=== PATIENT | female | born 1965 | race Caucasian/White ===

== ENCOUNTER 2018-03-07 18:26 | Emergency (ER) | payer MEDICAID ==
[2015-06-29 13:39] VITALS: BMI 17.3
[~2018-03-07 18:26] MED LIST: KLONOPIN1 MG PO; NORVASC2.5 MG PO; NUCYNTA50 MG PO; PROTONIX40 MG PO; ULTRAM50 MG PO; VITAMIN B-1100 M1 PO
== END 2018-03-07 19:22 | disposition home or self-care (01) ==
LOC: D.ER 18:26
DX: S61.512A Laceration without foreign body of left wrist, initial encounter (principal); W25.XXXA Contact with sharp glass, initial encounter; Y93.89 Activity, other specified; Y92.019 Unspecified place in single-family (private) house as the place of occurrence of the external cause; F17.200 Nicotine dependence, unspecified, uncomplicated

== ENCOUNTER 2020-01-10 15:02 | Emergency (ER) | payer MEDICAID ==
[~2020-01-10] VITALS: Ht 152.4 cm; Wt 39.5 kg
[2020-01-10 15:09] VITALS: Ht 152.4 cm; Wt 39.5 kg
[2020-01-10 17:08] VITALS: BP 136/94
== END 2020-01-10 17:09 | disposition home or self-care (01) ==
LOC: D.ER 15:02
DX: R53.1 Weakness (principal); F41.9 Anxiety disorder, unspecified; I10 Essential (primary) hypertension; Z72.0 Tobacco use; J02.9 Acute pharyngitis, unspecified